=== PATIENT | male | born 2000 | race American Indian/Alaskan Native ===

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

== ENCOUNTER 2020-05-15 20:11 | Emergency (ER) | payer MEDICAID ==
[2020-05-15 20:20] VITALS: BP 148/80
--- NOTE | 2020-05-15 21:59 | Emergency Department Report ---
ED General Adult HPI - General Chief complaint: Extremity Injury, Lower Stated complaint: LEG AND FOOT PAIN Time Seen by Provider: 05/15/20 21:55 Source: patient Mode of arrival: Ambulatory Limitations: No Limitations - History of Present Illness Initial comments: 19-year-old -[place] male patient presents with complaints of bilateral knee pain and bilateral foot pain for the past few days. Patient states he has had intermittent bilateral knee and foot pain for years that occurs only with exertion and physical activity. He states he started a new job 1 week ago and has had to do a great deal of kneeling and walking. He denies any fever/chills/sweats, difficulty moving his knees or ankles or feet, swelling, skin changes, or numbness/tingling/weakness in his limbs. No past medical history per patient. - Related Data Previous Rx's Medication Instructions Recorded Last Taken Type Clindamycin Palmitate (Nf) 300 mg PO TID 7 Days ml 08/22/18 Unknown Rx [Cleocin Palmitate (Nf)] Diclofenac Sodium 75 mg PO BID PRN #14 tablet. 05/15/20 Unknown Rx Allergies Allergy/AdvReac Type Severity Reaction Status Date / Time Penicillins Allergy Unknown Verified 11/18/18 13:46 ED Review of Systems ROS: Stated complaint: LEG AND FOOT PAIN Other details as noted in HPI Constitutional: denies: chills, diaphoresis, fever, malaise, weakness Genitourinary: denies: frequency, hematuria, discharge, testicular pain Musculoskeletal: arthralgia. denies: joint swelling Skin: denies: rash, lesions, change in color Neurological: denies: weakness, numbness, paresthesias, abnormal gait ED Past Medical Hx - Past Medical History Previous Medical History?: Yes Hx Psychiatric Treatment: Yes (DEPRESSION) Hx Asthma: Yes Additional medical history: PTSD, reactive mood disorder - Surgical History Past Surgical History?: Yes Additional Surgical History: tonsils and andnoid. lazy eyes - Social History Smoking Status: Never Smoker Substance Use Type: None - Medications Home Medications: Home Medications Medication Instructions Recorded Confirmed Last Taken Type Clindamycin Palmitate (Nf) 300 mg PO TID 7 Days ml 08/22/18 Unknown Rx [Cleocin Palmitate (Nf)] Diclofenac Sodium 75 mg PO BID PRN #14 tablet. 05/15/20 Unknown Rx ED Physical Exam - General Limitations: No Limitations General appearance: alert, in no apparent distress, obese (Morbid) - Head Head exam: Present: atraumatic, normocephalic - Respiratory Respiratory exam: Absent: respiratory distress - Cardiovascular Cardiovascular Exam: Present: regular rate - Extremities Exam Extremities exam: Present: full ROM (Noted bilaterally to knees, feet, and ankles), normal capillary refill, other (Normal pedal pulses noted bilaterally). Absent: tenderness (No significant tenderness noted bilaterally to knees, feet, or ankles), pedal edema, joint swelling, calf tenderness - Neurological Exam Neurological exam: Present: alert, oriented X3, normal gait. Absent: motor sensory deficit - Expanded Neurological Exam Expanded Sensory exam: Lower Extremity Light Touch: Normal Motor strength exam: RLE: 5, LLE: 5 - Psychiatric Psychiatric exam: Present: normal affect, normal mood - Skin Skin exam: Present: warm, dry, intact, normal color. Absent: rash, cyanosis, diaphoretic, erythema, ecchymosis ED Course Vital Signs 05/15/20 05/15/20 20:16 22:11 Temperature 98.2 F Pulse Rate 102 H 95 H Respiratory 18 16 Rate Blood Pressure 148/80 O2 Sat by Pulse 98 98 Oximetry ED Medical Decision Making - Medical Decision Making 19-year-old -[place] male patient presents with complaints of bilateral knee pain and bilateral foot pain for the past few days. Patient states he has had intermittent bilateral knee and foot pain for years that occurs only with exertion and physical activity. He states he started a new job 1 week ago and has had to do a great deal of kneeling and walking. He denies any fever/chills/sweats, difficulty moving his knees or ankles or feet, swelling, skin changes, or numbness/tingling/weakness in his limbs. No past medical history per patient. No abnormal findings of the joints on exam. Suspect patient's pain is due to chronic arthritis and morbid obesity. Recommend follow-up with primary care for further evaluation. Discussed signs and symptoms that should prompt immediate return to the emergency department in detail with patient who verbalizes understanding. Critical care attestation.: If time is entered above; I have spent that time in minutes in the direct care of this critically ill patient, excluding procedure time. ED Disposition Clinical Impression: Bilateral knee pain Qualifiers: Chronicity: acute Qualified Code(s): M25.561 - Pain in right knee Disposition: DC- TO HOME OR SELFCARE Is pt being admited?: No Condition: Stable Instructions: Acute Knee Pain, Adult, Musculoskeletal Pain Prescriptions: Diclofenac Sodium 75 mg PO BID PRN #14 tablet.[address] PANG Reason: pain Referrals: [facility] [Provider Group] - 3-5 Days
== END 2020-05-15 22:13 | disposition home or self-care (01) ==
LOC: ED 20:11
DX: M25.561 Pain in right knee (principal); M25.562 Pain in left knee; F32.9 Major depressive disorder, single episode, unspecified; J45.909 Unspecified asthma, uncomplicated; Z88.0 Allergy status to penicillin; Z79.899 Other long term (current) drug therapy; Z98.890 Other specified postprocedural states
CPT/HCPCS: 99281

== ENCOUNTER 2020-05-20 11:22 | Outpatient (CLI) | payer MEDICAID | END 2020-05-20 11:23 | disposition home or self-care (01) | LOC: SLR 11:22 | PROVIDERS: ATTEND Otolaryngology | DX: G47.30 Sleep apnea, unspecified (principal) | CPT/HCPCS: G0399 ==

== ENCOUNTER 2020-10-14 01:43 | Emergency (ER) | payer MEDICAID ==
--- NOTE | 2020-10-14 02:12 | Emergency Department Report ---
HPI - HPI HPI: Room 24 The patient is a 19-year-old male present with a chief complaint of suicidal ideation/medication overdose. Per EMS patient overdose on ibuprofen 800 mg #8 and Topamax 100 mg #90 estimated to have been ingested at approximately 00:50. The patient is a poor historian and refuses to answer most questions. Patient eventually acknowledges he only took ibuprofen and Topamax denying any other co ingestants. Patient would not answer when asked what time he took this medication. <CARLOS CAMEJO - Last Filed: 10/14/20 04:44> <YUSUF LI - Last Filed: 10/14/20 08:51> - General Time Seen by Provider: 10/14/20 02:00 ED Past Medical Hx - Past Medical History Hx Psychiatric Treatment: Yes (DEPRESSION) Hx Asthma: Yes Additional medical history: PTSD, reactive mood disorder - Surgical History Additional Surgical History: tonsils and adenoids, strabismus - Family History Family history: no significant - Social History Smoking Status: Unknown if ever smoked Substance Use Type: None <CARLOS CAMEJO - Last Filed: 10/14/20 04:44> <YUSUF LI - Last Filed: 10/14/20 08:51> - Medications Home Medications: Home Medications Medication Instructions Recorded Confirmed Last Taken Type Clindamycin Palmitate (Nf) 300 mg PO TID 7 Days ml 08/22/18 Unknown Rx [Cleocin Palmitate (Nf)] Diclofenac Sodium 75 mg PO BID PRN #14 tablet. 05/15/20 Unknown Rx ED Review of Systems ROS: Stated complaint: OVERDOSE/SUICIDE ATTEMPT Other details as noted in HPI Comment: Unobtainable due to pts medical conditions <CARLOS CAMEJO - Last Filed: 10/14/20 04:44> ROS: Stated complaint: OVERDOSE/SUICIDE ATTEMPT Other details as noted in HPI <YUSUF LI - Last Filed: 10/14/20 08:51> Physical Exam - Physical Exam Physical Exam: GENERAL: The patient is well-developed well-nourished male lying on stretcher not appearing to be in acute distress. Patient using cell phone HEENT: Normocephalic. Atraumatic. Extraocular motions are intact. Patient has moist mucous membranes. NECK: Supple. Trachea midline CHEST/LUNGS: Clear to auscultation. There is no respiratory distress noted. HEART/CARDIOVASCULAR: Regular. There is no tachycardia. There is no gallop rub or murmur. ABDOMEN: Abdomen is soft, nontender. Patient has normal bowel sounds. There is no abdominal distention. SKIN: There is no rash. There is no edema. There is no diaphoresis. NEURO: The patient is awake but not cooperative. Patient only answers some questions posed to him and ignores others. The patient has no focal neurologic deficits. The patient has normal speech MUSCULOSKELETAL: There is no evidence of acute injury. <CARLOS CAMEJO - Last Filed: 10/14/20 04:44> - Physical Exam Vital Signs: Vital Signs 10/14/20 10/14/20 10/14/20 02:12 02:16 02:38 Temperature Pulse Rate Respiratory Rate Blood Pressure 116/57 O2 Sat by Pulse 100 79 L 99 Oximetry 10/14/20 10/14/20 10/14/20 02:46 03:08 03:16 Temperature 97.8 F Pulse Rate 91 H 116 H 119 H Respiratory 15 23 21 Rate Blood Pressure 116/57 127/85 127/85 O2 Sat by Pulse 100 98 Oximetry 10/14/20 10/14/20 10/14/20 03:30 04:58 05:00 Temperature Pulse Rate 95 H 78 76 Respiratory 18 19 19 Rate Blood Pressure 141/103 115/52 115/52 O2 Sat by Pulse 98 98 Oximetry 10/14/20 10/14/20 05:15 05:30 Temperature Pulse Rate 92 H 75 Respiratory 17 13 Rate Blood Pressure 137/59 137/59 O2 Sat by Pulse 96 Oximetry <YUSUF LI - Last Filed: 10/14/20 08:51> ED Course - Consultations Consultation #1: 10/14/20 02:18 Poison control called 10/14/20 02:31 Case discussed with poison control. Recommend observing for 8 hours. States Topamax may lead to LIFE SCIENTIST depression, seizures, agitation hypotension and metabolic acidosis. Ibuprofen may lead to kidney dysfunction. Both medication may lead to GI symptoms including nausea vomiting diarrhea. Recommends administering charcoal 1 g/kg to a max of 100 g if the patient will take it. Agitation may be treated with benzos stay away from traditional antipsychotics. If patient remains stable after 8 hours of observation he may be cleared for psych <CARLOS CAMEJO - Last Filed: 10/14/20 04:44> Vital Signs 10/14/20 10/14/20 10/14/20 02:12 02:16 02:38 Temperature Pulse Rate Respiratory Rate Blood Pressure 116/57 O2 Sat by Pulse 100 79 L 99 Oximetry 10/14/20 10/14/20 10/14/20 02:46 03:08 03:16 Temperature 97.8 F Pulse Rate 91 H 116 H 119 H Respiratory 15 23 21 Rate Blood Pressure 116/57 127/85 127/85 O2 Sat by Pulse 100 98 Oximetry 10/14/20 10/14/20 10/14/20 03:30 04:58 05:00 Temperature Pulse Rate 95 H 78 76 Respiratory 18 19 19 Rate Blood Pressure 141/103 115/52 115/52 O2 Sat by Pulse 98 98 Oximetry 10/14/20 10/14/20 05:15 05:30 Temperature Pulse Rate 92 H 75 Respiratory 17 13 Rate Blood Pressure 137/59 137/59 O2 Sat by Pulse 96 Oximetry - Reevaluation(s) Reevaluation #1: 10/14/20 06:52 Repeat acetaminophen level unchanged from previous. No indication of acetaminophen toxicity. <YUSUF LI - Last Filed: 10/14/20 08:51> ED Medical Decision Making - Lab Data Result diagrams: 10/14/20 02:50 10/14/20 02:50 - EKG Data -: EKG Interpreted by Al EKG shows normal: sinus rhythm Rate: normal - EKG Data When compared to previous EKG there are: previous EKG unavailable Interpretation: other (QRS 106, QTc 405) - Differential Diagnosis Suicidal ideation, medication overdose <CARLOS CAMEJO - Last Filed: 10/14/20 04:44> - Lab Data Result diagrams: 10/14/20 02:50 10/14/20 02:50 - Medical Decision Making This gentleman is medically clear for psychiatric care. Repeat acetaminophen level unchanged from prior. He has been monitored appropriately. No adverse effects of ingestion. Awaiting treatment recommendations by psychiatric team. ED hold order in place. 1013 form completed by my colleague. Clinical impressions: Intentional ingestion, suicide attempt <YUSUF LI - Last Filed: 10/14/20 08:51> Critical care attestation.: If time is entered above; I have spent that time in minutes in the direct care of this critically ill patient, excluding procedure time. <CARLOS CAMEJO - Last Filed: 10/14/20 04:44> Critical Care Time: Yes Critical care time in (mins) excluding proc time.: 40 Critical care attestation.: If time is entered above; I have spent that time in minutes in the direct care of this critically ill patient, excluding procedure time. 40 minutes of critical care time excluding procedures were used in the care of the patient. I discussed treatment plan with the nursing team members. I reviewed electronic record. Patient required multiple interventions and reassessments. <YUSUF LI - Last Filed: 10/14/20 08:51> ED Disposition <CARLOS CAMEJO - Last Filed: 10/14/20 04:44> Is pt being admited?: No Does the pt Need Aspirin: No <YUSUF LI - Last Filed: 10/14/20 08:51> Clinical Impression: Intentional drug overdose, Suicide attempt Disposition: DC/TX-65 PSY HOSP/PSY UNIT Condition: Stable
[2020-10-14] MEDS ORDERED: charcoal activated SOLUTION 25 GM/120 ML PO ONE (02:28)
[2020-10-14] MEDS ORDERED: ONDANSETRON 4 MG ODT TAB PO ONE (02:29)
[2020-10-14 03:23] LABS: Basophils % (Auto) 0.4 % (0.0-1.8); Eosinophils # (Auto) 0.1 K/mm3 (0.0-0.4); Eosinophils % (Auto) 2.5 % (0.0-4.3); Hematocrit 43.3 % (35.5-45.6); Hemoglobin 14.9 gm/dl (11.8-15.2); Lymphocytes # (Auto) 1.5 K/mm3 (1.2-5.4); Lymphocytes % (Auto) 27.3 % (13.4-35.0); Mean Corpuscular HGB Conc 35 % (32-34); Mean Corpuscular Volume 82 fl (84-94); Monocytes # (Auto) 0.6 K/mm3 (0.0-0.8); Monocytes % (Auto) 11.5 % (0.0-7.3); Platelet Count 232 K/mm3 (140-440); Red Cell Distribution Width 13.7 % (13.2-15.2)
[2020-10-14 03:32] LABS: INR 0.96 (0.87-1.13)
[2020-10-14 03:33] LABS: Partial Thromboplastin Time 26.9 Sec. (24.2-36.6)
[2020-10-14 03:42] LABS: Alanine Aminotransferase 58 units/L (7-56); Albumin 4.4 g/dL (3.9-5); BUN/Creatinine Ratio 11; Blood Urea Nitrogen 9 mg/dL (9-20); Calcium 9.7 mg/dL (8.4-10.2); Hemolysis Index 3
[2020-10-14 04:52] LABS: Bilirubin,Urine NEG (Negative); Blood,Urine NEG (Negative); Color,Urine Yellow (Yellow); RBC,Urine < 1.0 /HPF (0.0-6.0); Urobilinogen,Urine < 2.0 mg/dL (<2.0)
[2020-10-14 04:56] LABS: Protein,Urine >500 mg/dL (Negative)
[2020-10-14 05:03] LABS: Amphetamine Screen,Urine PRESUMPTIVE NEGATIVE; Benzodiazepines Screen,Urine PRESUMPTIVE NEGATIVE; Cannabinoid Screen,Urine PRESUMPTIVE NEGATIVE; Cocaine Screen,Urine PRESUMPTIVE NEGATIVE; Methadone Screen,Urine PRESUMPTIVE NEGATIVE; Opiate Screen,Urine PRESUMPTIVE NEGATIVE
[2020-10-14] MEDS ORDERED: SODIUM CHLORIDE 0.9% 1000 ML 1,000 ML IV ONE (05:06)
[2020-10-14 07:59] VITALS: BP 119/66
--- NOTE | 2020-10-14 09:28 | Consultation ---
History of Present Illness - Reason for Consult Consult date: 10/14/20 Reason for consult: suicidal attempt - History of Present Psychiatric Illness Per ED: The patient is a 19-year-old male present with a chief complaint of suicidal ideation/medication overdose. Per EMS patient overdose on ibuprofen 800 mg #8 and Topamax 100 mg #90 estimated to have been ingested at approximately 00:50. The patient is a poor historian and refuses to answer most questions. Patient eventually acknowledges he only took ibuprofen and Topamax denying any other coingestants. Patient would not answer when asked what time he took this medication. Jan Colon is a 19 year old patient with a history of depression and anxiety who presents to the ED with suicidal attempt via overdosing on pills. In my interview with the patient, he presents with thought blocking. The patient did not remember why he was admitted however after several prompts he stated " I took pills." The patient reports recent stressors as constant arguments with his mother. The patient is unable to recall psychotropic medications that he is taking hence medication compliance is unknown. He reports attending therapy session for about one month. The patient endorses suicidal ideation with a plan to overdose on pills. The patient presents with some confusion, seen pacing. He denies any hallucinations. Diagnoses: Depression and Anxiety Suicide attempts or Self-harm behavior: Denies Prior psychiatric hospitalizations: Denies Substance Abuse history: Denies Previous psychiatric medications tried: unable to recall Outpatient treatment: Yes PAST MEDICAL HISTORY: Brain Tumor Family Psychiatric History: None reported or documented SOCIAL HISTORY Marital Status: Single Living Arrangements: Lives with family Employment Status: unemployed Access to guns/weapons: Denies Education: 12th grade History of Abuse: none reported Legal History: none reported REVIEW OF SYSTEMS Constitutional: Negative for weight loss ENT: Negative for stridor Respiratory: Negative for cough or hemoptysis All other systems reviewed and are negative MENTAL STATUS EXAMINATION General Appearance and Behavior: Age appropriate, good hygiene, wearing appropriate clothes, sleeping, cooperative Cooperation: Participating/engaged Psychomotor Behavior: unremarkable and within normal limits Mood: Depressed Affect and affective range: congruent with mood Thought Process: goal directed Thought Content: SI Speech: Normal volume, Regular rate and rhythm, Suicidal Ideation: Yes Homicidal Ideation: Denies Hallucinations: Denies Delusions: None elicited Impulse Control: Unimpaired Insight and Judgment: poor insight and judgment, Memory: Normal, Attention: Normal Orientation: Alert, oriented Assessment and Plan (1)Major depressive disorder, recurrent, severe- F33.2 Current Visit: Yes Status: Acute Treatment Plan The patient to comply with previously prescribed medications Risks, benefits and alternatives of medications discussed with the patient, questions answered and consent obtained from patient. PSYCHOTHERAPY: Supportive psychotherapy provided MEDICAL: Per primary team DELIRIUM PRECAUTIONS: Please re-orient patient frequently, keep lights on during the day, and minimize benzodiazepines and opiates as these medications could worsen patient's confusion. 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 FOLLOW-UP: Will follow Thank you for the consult. Please contact with any questions and/or concerns. Medications and Allergies Medications and Allergies Allergies Allergy/AdvReac Type Severity Reaction Status Date / Time Penicillins Allergy Unknown Verified 11/18/18 13:46 Home Medications Medication Instructions Recorded Confirmed Last Taken Type Clindamycin Palmitate (Nf) 300 mg PO TID 7 Days ml 08/22/18 Unknown Rx [Cleocin Palmitate (Nf)] Diclofenac Sodium 75 mg PO BID PRN #14 tablet. 05/15/20 Unknown Rx Mental Status Exam - Vital signs Last Vital Signs Temp 97.8 F 10/14/20 03:08 Pulse 75 10/14/20 05:30 Resp 13 10/14/20 05:30 BP 119/66 10/14/20 07:50 Pulse Ox 99 10/14/20 07:50 Results Result Diagrams: 10/14/20 02:50 10/14/20 02:50 Abnormal lab results 10/14/20 10/14/20 10/14/20 Range/Units 02:50 02:50 02:50 RBC 5.30 H (3.65-5.03) M/mm3 MCV 82 L (84-94) fl MCHC 35 H (32-34) % Pershing % (Auto) 11.5 H (0.0-7.3) % Potassium 3.5 L (3.6-5.0) mmol/L ALT 58 H (7-56) units/L Urine pH (5.0-7.0) Acetaminophen 5.0 L (10.0-30.0) ug/mL 10/14/20 10/14/20 Range/Units 05:26 Unknown RBC (3.65-5.03) M/mm3 MCV (84-94) fl MCHC (32-34) % Pershing % (Auto) (0.0-7.3) % Potassium (3.6-5.0) mmol/L ALT (7-56) units/L Urine pH 8.0 H (5.0-7.0) Acetaminophen 5.0 L (10.0-30.0) ug/mL All other labs normal.
--- NOTE | 2020-10-14 10:39 | Electrocardiograph Report ---
[facility] Test Date: 2020-10-14 Test Time: 04:41:39 Pat Name: MARTHA FARFAN Department: Room: Gender: M [employer]: : 2000 Requested By: CARLOS CAMEJO Order Number: [id number] Reading MD: Isaias Park Measurements Intervals [place] Rate: 73 P: 44 NE: 169 QRS: 39 QRSD: 106 T: 19 QT: 367 QTc: 405 Interpretive Statements Sinus rhythm No previous ECG available for comparison Electronically Signed On 10-14-2020 10:38:55 EDT by Isaias Park
== END 2020-10-14 14:32 ==
LOC: ED 01:43
DX: T39.312A Poisoning by propionic acid derivatives, intentional self-harm, initial encounter (principal); T42.6X2A Poisoning by other antiepileptic and sedative-hypnotic drugs, intentional self-harm, initial encounter; F32.9 Major depressive disorder, single episode, unspecified; J45.909 Unspecified asthma, uncomplicated; F43.10 Post-traumatic stress disorder, unspecified; X58.XXXA Exposure to other specified factors, initial encounter; Y93.89 Activity, other specified; Y92.89 Other specified places as the place of occurrence of the external cause; Y99.8 Other external cause status
CPT/HCPCS: 36415; 80053; 80307; 81001; 85025; 85610; 85730; 93005; 96360; 99291; J7030; U0003; 80320; G0480; Q0162